=== PATIENT | female | born 2000 | race Hispanic/Latino ===

== ENCOUNTER 2022-12-01 11:44 | Emergency (ER) | payer MEDICAID, OTHER ==
[2022-12-01 14:17] LABS: SARS-CoV-2 NAA Rapid Test DETECTED (NotDetected)
== END 2022-12-01 12:45 | disposition home or self-care (01) ==
LOC: ERS 11:44
DX: J06.9 Acute upper respiratory infection, unspecified (principal); R49.0 Dysphonia; Z20.822 Contact with and (suspected) exposure to COVID-19
CPT/HCPCS: 87081; 87430; 99284

== ENCOUNTER 2022-12-06 18:59 | Emergency (ER) | payer OTHER ==
[2022-12-06 20:45] LABS: SARS-CoV-2 NAA Rapid Test DETECTED (NotDetected)
== END 2022-12-06 20:31 | disposition home or self-care (01) ==
LOC: ERS 18:59
DX: Z20.822 Contact with and (suspected) exposure to COVID-19 (principal)
CPT/HCPCS: 99283